=== PATIENT | male | born 1960 | race Caucasian/White ===

== ENCOUNTER 2020-09-26 17:44 | Emergency (ER) | payer OTHER ==
[~2020-09-26] VITALS: Ht 177.8 cm; Wt 70.3 kg
[2020-09-26] MEDS ORDERED: NAPROXEN250 MG PO (21:20)
== END 2020-09-26 21:30 | disposition home or self-care (01) ==
LOC: ED 17:44
DX: S00.93XA Contusion of unspecified part of head, initial encounter (principal); S20.20XA Contusion of thorax, unspecified, initial encounter; S20.229A Contusion of unspecified back wall of thorax, initial encounter; S16.1XXA Strain of muscle, fascia and tendon at neck level, initial encounter; W00.9XXA Unspecified fall due to ice and snow, initial encounter; Y93.89 Activity, other specified; Y92.89 Other specified places as the place of occurrence of the external cause; Y99.8 Other external cause status